=== PATIENT | female | born 1955 | race Caucasian/White ===

== ENCOUNTER 2016-10-19 09:29 | Observation (INO) | payer OTHER ==
[~2016-10-19] VITALS: Ht 167.6 cm; Wt 96.7 kg
[~2016-10-19 09:29] MED LIST: CELEBREX200 MG PO; FENOFIBRATE145 M1 PO; HYDROXYCHLOROQ200 MG PO; LIPITOR40 MG PO; LISINOPRIL20 MG PO; ST. JOSEPH ASPI81 MG PO; TYLENOL REGULA325 MG PO
[2016-10-19 10:49] LABS: BASOPHIL COUNT 0.1 K/uL (0-0.1); EOSINOPHIL (%) 2.5 % (0-5); EOSINOPHIL COUNT 0.1 K/uL (0-0.3); HEMATOCRIT 36.8 % (36.0-46.0); IMMATURE GRANULOCYTE (%) 0.2 % (0.0-0.7); IMMATURE GRANULOCYTE COUNT 0.1 K/uL; LYMPHOCYTE COUNT 1.3 K/uL (1.0-2.8); MCH 29.4 PG (29.0-34.0); MCHC 34.5 G/DL (30.0-36.0); MCV 85.2 FL (83-99); MONOCYTE (%) 8.1 % (3-12); MONOCYTE COUNT 0.4 K/uL (0-0.8); NEUTROPHIL (%) 63.9 % (45-76); NEUTROPHIL COUNT 3.4 K/uL (1.8-6.4); PLATELET COUNT 264 K/uL (156-360); RBC DIS.WIDTH-CV 13.2 % (11.8-14.6); RBC DIS.WIDTH-SD 40.4 % (39-53); RED BLOOD COUNT 4.32 M/uL (3.80-5.20); WHITE BLOOD COUNT 5.3 K/uL (4.1-10.2)
[2016-10-19 10:57] LABS: ADD MIUA? NO; BILIRUBIN NEGATIVE; BLOOD NEGATIVE; COLOR YELLOW ((YELLOW)); GLUCOSE (STRIP) 250; KETONES NEGATIVE; LEUKOCYTES NEGATIVE; NITRITE NEGATIVE; PH, URINE 6.5 (5-8); PROTEIN (STRIP) NEGATIVE; SPECIFIC GRAVITY 1.035 (1.000-1.030); UCUL ADDED? NO; UROBILINOGEN 0.2 MG/DL (0.2-1.0)
[2016-10-19 10:59] LABS: PROTHROMBIN TIME 10.5 (9.2-11.2)
[2016-10-19 11:00] LABS: CHLORIDE 105 mEq/L (99-109); POTASSIUM 4.8 mEq/L (3.7-5.4); SODIUM 136 mEq/L (136-147)
[2016-10-19 11:01] LABS: MAGNESIUM 2.8 mg/dL (1.3-2.7)
[2016-10-19 11:02] LABS: GLUCOSE 153 mg/dL (70-99)
[2016-10-19 11:04] LABS: ANION GAP 12 MEQ/L (2-14)
[2016-10-19 11:06] LABS: GFR ESTIMATE (CALCULATED) > 59 mL/min/
[2016-10-19 11:07] LABS: UREA NITROGEN (BUN) 18 mg/dL (9-23)
[2016-10-19 11:10] LABS: TROP-I INTERPRETATION NEGATIVE; TROPONIN-I < 0.01 ng/mL (0.0-0.30)
[2016-10-19] MEDS ORDERED: PLAVIX75 MG PO (14:42)
[2016-10-19] MEDS ORDERED: PAIN RELIEF650 MG PO (14:44)
[2016-10-19] MEDS ORDERED: LEXAPRO10 MG PO (14:45)
[2016-10-19] MEDS ORDERED: COZAAR50 MG PO (14:45)
[2016-10-19 17:58] VITALS: BP 157/88
[2016-10-19 18:16] VITALS: BP 133/65
[2016-10-19 19:50] LABS: Estimated Average Glucose 166 mg/dL (70-123); HEMOGLOBIN A1c (GLYCOHEMOGLOB) 7.4 % HGB (Below 5.7)
[2016-10-19 19:53] LABS: TROP-I INTERPRETATION NEGATIVE; TROPONIN-I < 0.01 ng/mL (0.0-0.30)
[2016-10-19 22:00] VITALS: BP 146/77
[2016-10-20 03:05] VITALS: BP 138/64
[2016-10-20 08:05] VITALS: BP 140/77
[2016-10-20 11:51] VITALS: BP 158/85
[2016-10-20] MEDS ORDERED: METFORMIN HCL500 MG PO (13:59)
[2016-10-20 15:53] VITALS: BP 150/78
== END 2016-10-20 16:41 | disposition home or self-care (01) ==
LOC: EME 09:29 → EDOF 14:44 → 5WEST 17:09
PROVIDERS: Emergency Medicine; Internal Medicine
DX: R41.0 Disorientation, unspecified (principal); R41.3 Other amnesia; R51 Headache; E83.42 Hypomagnesemia; G89.29 Other chronic pain; E11.9 Type 2 diabetes mellitus without complications; E78.5 Hyperlipidemia, unspecified; I10 Essential (primary) hypertension; M06.9 Rheumatoid arthritis, unspecified; Z86.73 Personal history of transient ischemic attack (TIA), and cerebral infarction without residual deficits
CPT/HCPCS: 70450; 70551; 71010; 80048; 81003; 83036; 83735; 84484; 85025; 85610; 85730; 93005; 93306; 93880; 99281; 99285; G0378; J1650

== ENCOUNTER 2018-04-11 07:38 | Emergency (ER) | payer OTHER ==
[~2018-04-11] VITALS: Ht 170.2 cm; Wt 87.6 kg
[~2018-04-11 07:38] MED LIST changes: +COZAAR50 MG PO; +LEXAPRO10 MG PO; +METFORMIN HCL500 MG PO; +PAIN RELIEF650 MG PO; +PLAVIX75 MG PO
[2018-04-11 08:30] LABS: HEMATOCRIT 38.7 % (36.0-46.0); MCHC 33.6 G/DL (30.0-36.0); MCV 86.4 FL (83-99); PLATELET COUNT 270 K/uL (156-360); RBC DIS.WIDTH-CV 12.9 % (11.8-14.6); RBC DIS.WIDTH-SD 40.7 % (39-53); RED BLOOD COUNT 4.48 M/uL (3.80-5.20); WHITE BLOOD COUNT 6.2 K/uL (4.1-10.2)
[2018-04-11 08:39] LABS: CHLORIDE 106 mEq/L (99-109); POTASSIUM 4.4 mEq/L (3.7-5.4); SODIUM 142 mEq/L (136-147)
[2018-04-11 08:40] LABS: GLUCOSE 167 mg/dL (70-99)
[2018-04-11 08:44] LABS: CREATININE 0.9 mg/dL (0.6-1.3); GFR ESTIMATE (CALCULATED) > 59 mL/min/
[2018-04-11 08:45] LABS: UREA NITROGEN (BUN) 15 mg/dL (9-23)
[2018-04-11 08:50] LABS: TROP-I INTERPRETATION NEGATIVE; TROPONIN-I < 0.01 ng/mL (0.0-0.30)
[2018-04-11] MEDS ORDERED: FLEXERIL10 MG PO (10:39)
[2018-04-11 10:56] VITALS: BP 158/85
== END 2018-04-11 10:59 | disposition home or self-care (01) ==
LOC: EME 07:38
PROVIDERS: Nurse Practitioner Family
DX: S46.912A Strain of unspecified muscle, fascia and tendon at shoulder and upper arm level, left arm, initial encounter (principal); D16.02 Benign neoplasm of scapula and long bones of left upper limb; R20.2 Paresthesia of skin; R07.9 Chest pain, unspecified; E78.5 Hyperlipidemia, unspecified; I10 Essential (primary) hypertension; E11.9 Type 2 diabetes mellitus without complications; M06.9 Rheumatoid arthritis, unspecified; Z86.73 Personal history of transient ischemic attack (TIA), and cerebral infarction without residual deficits; Z79.02 Long term (current) use of antithrombotics/antiplatelets; F03.90 Unspecified dementia, unspecified severity, without behavioral disturbance, psychotic disturbance, mood disturbance, and anxiety
CPT/HCPCS: 70450; 71046; 71275; 73030; 73200; 80048; 84484; 85027; 93005; 99281; 99284; J7030